=== PATIENT | female | born 2000 | race Hispanic/Latino ===

== ENCOUNTER 2025-09-11 12:54 | Emergency (ER) | payer OTHER, SELFPAY ==
[2025-09-11 13:04] VITALS: BP 129/58; PULSE 70; RESP 18; TEMP 36.8; O2SAT 100; BMI 29.9
--- NOTE | 2025-09-11 14:32 | ED.ALLEREA ---
HPI - Allergic Reaction General Chief complaint: Allergic Reaction Stated complaint: Hives since t-1, Time Seen by Provider: 09/11/25 14:24 Source: patient Mode of arrival: Family Vehicle History of Present Illness HPI narrative: Patient is a 25-year-old female newly presenting today with hives on her arms and legs. She reports that they started last night. She also noticed that she was itchy on her scalp as well. She has no difficulty breathing. No new soaps lotions or new medications. She has absolutely no abdominal pain nausea vomiting or vaginal bleeding. She has not yet been fully evaluated for [place] Related Data Previous Rx's ?Medication ?Instructions ?Recorded cephalexin 500 mg capsule 500 mg PO BID 5 days #10 caps 09/11/25 prednisone 20 mg tablet 20 mg PO DAILY #5 tabs 09/11/25 Allergies Allergy/AdvReac Type Severity Reaction Status Date / Time No Known Drug Allergies Allergy Verified 09/11/25 13:03 Patient History Social History Smoking Status: Former smoker Smoking Status: Former smoker tobacco type: cigarettes Exam Initial Vital Signs Initial Vital Signs: Vital Signs Temperature 98.2 F 09/11/25 13:04 Pulse Rate 70 09/11/25 13:04 Respiratory Rate 18 09/11/25 13:04 Blood Pressure 129/58 L 09/11/25 13:04 Pulse Oximetry 100 09/11/25 13:04 Oxygen Delivery Method Room Air 09/11/25 13:04 GENERAL: Alert well-appearing 25-year-old female and in no acute distress. HEENT: Head atraumatic,EOMI, pupils reactive, face symmetric, moist mucous membranes no tongue swelling no lip swelling CARDIOVASCULAR: Regular rate and rhythm without murmurs, rubs or gallops. RESPIRATORY: Breath sounds equal bilaterally, no wheezes rales or rhonchi. ABDOMEN: Soft, nontender. Normoactive bowel sounds all 4 quadrants. No guarding or rebound. EXTREMITIES: Normal range of motion, no clubbing or edema. Neurovascularly intact NEUROLOGICAL: Alert and oriented x4.Normal gait and speech. Cranial nerves II through XII grossly intact. SKIN: Urticaria and hives noted bilateral arm and legs. Course Orders Ordered: ED Orders 09/11/25 14:34 Urine Culture Stat Urine Microscopic Stat Discontinued Medications Diphenhydramine HCl (Diphenhydramine 25 Mg Tablet) 25 mg PO NOW ONE Stop: 09/11/25 14:32 Last Admin: 09/11/25 14:39 Dose: 25 mg Documented By: NENITA Prednisone (Prednisone 20 Mg Tablet) 40 mg PO NOW ONE Stop: 09/11/25 14:32 Last Admin: 09/11/25 14:38 Dose: 40 mg Documented By: NENITA Vital Signs Vital signs: Vital Signs - 8 hr 09/11/25 13:04 09/11/25 15:26 Temperature 98.2 F Pulse Rate 70 88 Respiratory Rate 18 16 Blood Pressure 129/58 L 122/70 Pulse Oximetry 100 97 Oxygen Delivery Method Room Air Room Air MDM - Allergic Reaction Lab Data Labs: Lab Results 09/11/25 Range/Units 14:34 Urine RBC None seen (0-5/HPF) Urine WBC 1-5/hpf (0-5/HPF) Ur Squamous Epith Cells 1-5 /hpf (0-5/HPF) Urine Bacteria Many (>30) H (None) Ur Culture Indicated? Specimen cultured Vol Urine Centrifuged 10ml (spun) Point of Care Testing Test Results Positive Urine Dip Bedside Urine Glucose Negative Bedside Urine Bilirubin - Negative Bedside Urine Ketone - Negative Urine Specific [place] 1.005 Bedside Urine Occult Blood +/- Bedside Urine pH 6.0 Bedside Urine Protein - Negative Bedside Urine Urobilinogen - Negative Bedside Urine Nitrite - Negative Bedside Urine Leukocytes ++ 125 Esterase MDM Narrative Medical decision making narrative: Patient is newly about 6 weeks per her. She has no abdominal pain or vaginal bleeding. She is here for urticaria. Unknown allergen. No anaphylaxis. Given prednisone and Benadryl here in the ED Discharge Plan Departure Patient Disposition: Home Clinical Impression: Urticaria, UTI (urinary tract infection) Instructions: DI for Urinary Tract Infection (UTI), DI for Hives Activity Restrictions/Additional Instructions: *You have been diagnosed with urticaria *What to do: At this time unclear what you are allergic to. Hopefully you start feeling better after prednisone and Benadryl *Continue to take medications as directed Prednisone 20 mg once a day for 3 days Benadryl 25-50 mg every 6 hours if needed for itching Keflex 500 mg twice a day for 5 days *Follow up with your primary care provider in 2-3 days or call [phone] *Return to ER if you should have increasing rash tongue swelling lip swelling difficulty breathing or any new, worsening or concerning symptoms Prescriptions: New prednisone 20 mg tablet 20 mg PO DAILY Qty: 5 0RF cephalexin 500 mg capsule 500 mg PO BID 5 Days Qty: 10 0RF Referrals: ProviderPrema [Primary Care Provider, [facility]] Stand Alone Forms: Patient Portal/API
[2025-09-11] MEDS: diphenhydrAMINE 25 MG TABLET PO (14:39)
[2025-09-11 15:10] LABS: Culture Indicated Urine Specimen Cultured
[2025-09-11 15:26] VITALS: BP 122/70; PULSE 88; RESP 16; O2SAT 97
== END 2025-09-11 15:27 | disposition home or self-care (01) ==
PROVIDERS: Emergency Provider Emergency Medicine
DX: L50.9 Urticaria, unspecified (principal); N39.0 Urinary tract infection, site not specified; Z87.891 Personal history of nicotine dependence
CPT/HCPCS: 81003; 81015; 81025; 87086; 99283